=== PATIENT | female | born 2000 | race Caucasian/White ===

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

== ENCOUNTER → 2020-04-21 | Outpatient (CLI) | payer SELFPAY | LOC: M LABCAHC 14:55 | PROVIDERS: ATTEND Pediatrics | DX: Z11.59 Encounter for screening for other viral diseases (principal) ==

== ENCOUNTER → 2022-05-12 | Outpatient (CLI) | payer OTHER ==
[2022-05-12 18:35] LABS: HEMOGLOBIN A1c 5.1 % (4.0-6.0)
[2022-05-12 18:55] LABS: HCG, SERUM QUALITATIVE NEGATIVE (NEGATIVE)
[2022-05-12 18:58] LABS: THYROID STIMULATING HORMONE 0.731 uIU/ML (0.55-4.78)
[2022-05-12 18:59] LABS: FREE T4 1.12 NG/DL (0.89-1.76); PROLACTIN 9.22 NG/ML
[2022-05-12 19:09] LABS: HEPATITIS B SURFACE ANTIGEN NEGATIVE (NEGATIVE)
[2022-05-12 19:23] LABS: HIV 1&2 SCREEN CENTAUR NEGATIVE (NEGATIVE)
[2022-05-12 19:31] LABS: HEPATITIS B CORE ANTIBODY IGM NEGATIVE (NEGATIVE); HEPATITIS C VIRUS ABY INDEX 0.1 INDEX (<0.8)
[2022-05-18 13:07] LABS: 17 HYDROXY PROGESTERONE 152 ng/dL (.); DEHYDROEPIANDROSTERONE SULFATE 95.5 ug/dL (110.0-431.7); TESTOSTERONE FREE (DIRECT) 1.7 pg/mL (0.0-4.2)
== END ==
LOC: M PLALAB 14:58
PROVIDERS: ATTEND Nurse Practitioner Family
DX: Z12.4 Encounter for screening for malignant neoplasm of cervix (principal); N92.6 Irregular menstruation, unspecified; R10.2 Pelvic and perineal pain
CPT/HCPCS: 36415; 82627; 83036; 83498; 84146; 84402; 84403; 84439; 84443; 84703; 86705; 86780; 86803; 87340; 87389; G0123

== ENCOUNTER → 2023-03-01 | Outpatient (CLI) | payer BC, OTHER ==
[~2023-03-01] MED LIST: SERT50TA29 PO
[2023-03-01 16:53] LABS: HEMATOCRIT 40.2 % (36.0-47.0); HEMOGLOBIN 13.5 g/dl (12.0-15.5); MEAN CORPUSCULAR HEMOGLOBIN 29.4 pg (27.0-33.0); MEAN CORPUSCULAR HGB CONC 33.6 g/dl (32.0-36.5); MEAN CORPUSCULAR VOLUME 87.6 fl (80.0-96.0); PLATELET COUNT, AUTOMATED 377 10^3/uL (150-450); RED BLOOD COUNT 4.59 10^6/uL (4.00-5.40); WHITE BLOOD COUNT 9.1 10^3/uL (4.0-10.0)
[2023-03-01 17:16] LABS: BLOOD UREA NITROGEN 11 MG/DL (9-23); CARBON DIOXIDE LEVEL 28 MMOL/L (20-31); CHLORIDE LEVEL 106 MMOL/L (98-107); CREATININE FOR GFR 0.58 MG/DL (0.55-1.30); GLOMERULAR FILTRATION RATE > 60.0 (>60); GLUCOSE, FASTING 73 MG/DL (60-100); POTASSIUM SERUM 3.9 MMOL/L (3.5-5.1); SODIUM LEVEL 139 MMOL/L (136-145)
== END ==
LOC: M LAB 16:18
PROVIDERS: ATTEND Plastic Surgery Surgery of the Hand
DX: L90.5 Scar conditions and fibrosis of skin (principal)

== ENCOUNTER 2023-03-07 07:22 | Day surgery (SDC) | payer BC, OTHER ==
[~2023-03-07] VITALS: Ht 167.6 cm; Wt 97.5 kg
[~2023-03-07 07:22] MED LIST changes: +ceFAZolin SOD 2 GM in IV 1 EA IV ONE
[2023-03-07] MEDS ORDERED: LR 1,000 ML IV SCH ×2 (07:45→11:15)
[2023-03-07] MEDS ORDERED: GENTAMICIN SULF 80MG/2ML VIAL As Ordered ONE (09:34)
[2023-03-07] MEDS ORDERED: TRIAMCINOLONE ACETONIDE SUSP 40MG/ML 1ML VIAL As Ordered ONE (10:14)
[2023-03-07] MEDS ORDERED: LIDOCAINE W/EPINEPHRINE 1% 20ML VIAL As Ordered ONE (10:14)
[2023-03-07] MEDS ORDERED: ACETAMINOPHEN 1000MG 100ML IV BAG As Ordered ONE (10:29)
[2023-03-07] MEDS ORDERED: fentaNYL 100 MCG/2 ML INJECTION As Ordered ONE (10:29)
[2023-03-07] MEDS ORDERED: propofoL 200 MG/20 ML VIAL As Ordered ONE ×2 (10:29→10:30)
[2023-03-07] MEDS ORDERED: METOCLOPRAMIDE INJ 10MG/2ML VIAL As Ordered ONE (10:29)
[2023-03-07] MEDS ORDERED: MIDAZOLAM INJ 2MG/2ML VIAL As Ordered ONE (10:29)
[2023-03-07] MEDS ORDERED: ONDANSETRON 4MG 2ML VIAL As Ordered ONE (10:29)
[2023-03-07] MEDS ORDERED: LIDOCAINE 2% 100MG/5ML SDV (FOR ANES.) As Ordered ONE (10:29)
[2023-03-07] MEDS ORDERED: dexmedeTOMIDine (4MCG/ML)200MCG/50ML BTL (PRECEDEX) As Ordered ONE ×3 (10:29→10:34)
[2023-03-07] MEDS ORDERED: ePHEDrine SULFATE 25 MG/5 ML(5MG/ML) SYRINGE As Ordered ONE (10:53)
[2023-03-07] MEDS ORDERED: fentaNYL 100 MCG/2 ML INJECTION IV PRN (11:15)
[2023-03-07] MEDS ORDERED: ONDANSETRON 4MG 2ML VIAL IV PRN (11:15)
[2023-03-07] MEDS ORDERED: oxyCODONE 5MG TAB PO PRN (11:15)
[2023-03-07] MEDS ORDERED: HYDROMORPHONE HCL 0.5 MG/ 0.5 ML SYRINGE IV PRN (11:15)
[2023-03-07 12:00] VITALS: BP 135/76; TEMP 97.4; O2SAT 96
== END 2023-03-07 12:22 | disposition home or self-care (01) ==
LOC: M SDC 07:22
PROVIDERS: ATTEND Plastic Surgery Surgery of the Hand
DX: L90.5 Scar conditions and fibrosis of skin (principal); F41.9 Anxiety disorder, unspecified; Z79.899 Other long term (current) drug therapy; Z90.49 Acquired absence of other specified parts of digestive tract
CPT/HCPCS: 11404; 81025; 88302; C9290; J0131; J0690; J1100; J1580; J2250; J2405; J2765; J3010; J3301

== ENCOUNTER → 2023-05-29 | Outpatient (REF) | payer BC, OTHER ==
[~2023-05-29] MED LIST changes: -ceFAZolin SOD 2 GM in IV 1 EA IV ONE
== END ==
LOC: M LAB REF 11:57
PROVIDERS: ATTEND Plastic Surgery Surgery of the Hand
DX: L90.5 Scar conditions and fibrosis of skin (principal); Z48.817 Encounter for surgical aftercare following surgery on the skin and subcutaneous tissue